=== PATIENT | female | born 1970 | race Caucasian/White ===

== ENCOUNTER → 2017-07-23 17:42 | Outpatient (CLI) | payer OTHER, SELFPAY ==
--- NOTE | 2017-07-23 17:51 | DI.MRI.S_ITS ---
PROCEDURE: MR CERVICAL SPINE WO CON INDICATIONS: CERVICAL SPINE PAIN TECHNIQUE: Noncontrast sagittal T1 spin echo and T2 fast spin echo, sagittal STIR, foraminal oblique sagittal T2 fast spin echo, and axial gradient echo or T2 fast spin echo through the cervical spine. COMPARISON: None. FINDINGS: Image quality: Excellent. Alignment and Curvature: There is normal bony alignment. Bone Marrow: Marrow demonstrates normal overall signal. Spinal Cord: Visualized spinal cord has normal size and signal. No cerebellar tonsillar herniation. Paraspinous Soft Tissues: No paravertebral masses. Note is made of a 7 mm rounded inferior third left thyroid nodule structure, likely a cyst by imaging characteristics. Prevertebral soft tissues are normal in thickness. C2-C3: Normal appearance. C3-C4: Normal appearance except for slight disc dehydration. C4-C5: Mild degenerative disc height reduction, slight posterior transverse disc bulge which effaces CSF from the anterior thecal sac but does not significantly compress the adjacent cervical cord. C5-C6: Mild degenerative disc disease, posterior broad-based transverse disc bulge which effaces CSF from the anterior thecal sac, and does not distort the adjacent anterior cord. Facet osteoarthritis is slightly greater on the left than the right with mild left foraminal stenosis but no definite nerve root impingement. C6-C7: Moderate degenerative disc disease, posterior broad-based transverse disc bulge which is greater on the left than the right and combines with asymmetric left greater than right facet osteoarthritis that results in a moderate degree of left foraminal stenosis and minimal if any right foraminal stenosis. There is mild anterior distortion of the C7 level of the cervical cord, on the left. No disc herniation is found. C7-T1: Normal appearance. IMPRESSION: The degenerative disc disease and facet osteoarthritis in this patient is relatively mild, with only a small degree of anterior spinal stenosis best seen left greater than right at C6-C7. Foraminal stenosis at the left C6-7 level likely results in asymmetric impingement on the course of the left C7 nerve root. No disc herniation found. Dictated by: Geovanny Garcia M.D. on 07/24/2017 at 9:50 Approved by: Geovanny Garcia M.D. on 07/24/2017 at 10:08
== END ==
PROVIDERS: Visit Provider Physical Medicine & Rehabilitation Pain Medicine
DX: M54.2 Cervicalgia (principal); M50.30 Other cervical disc degeneration, unspecified cervical region; M47.9 Spondylosis, unspecified; M48.02 Spinal stenosis, cervical region
CPT/HCPCS: 72141

== ENCOUNTER → 2019-10-19 12:18 | Outpatient (CLI) | payer OTHER, SELFPAY ==
--- NOTE | 2019-10-19 12:36 | DI.MG.S_ITS ---
Patient Name: KIMBERLY MAYEN date: 1970 Sex: F Attending Physician: Chris Indications: Date: 10/19/2019 12:26 At the request of: NEFTALI MILES Procedure: MM screening mammo BI BILATERAL DIGITAL SCREENING MAMMOGRAM 3D/2D WITH CAD: 10/19/2019 CLINICAL: Routine screening. Baseline exam. No prior exams were available for comparison. The tissue of both breasts is heterogeneously dense. This may lower the sensitivity of mammography. Current study was also evaluated with a Computer Aided Detection (CAD) system. No significant masses, calcifications, or other findings are seen in either breast. IMPRESSION: NEGATIVE There is no mammographic evidence of malignancy. A 1 year screening mammogram is recommended. This exam was interpreted at Station ID: [id number]. NOTE: For mammograms, a report in lay terms will be sent to the patient. Approximately 15% of breast malignancies will not be visualized mammographically. In the management of a palpable breast mass, a negative mammogram must not discourage biopsy of a clinically suspicious lesion. Electronically Signed By: Surekha lan/santana:10/19/2019 13:08:00 letter sent: Normal Exam ACR BI-RADS Category 1: Negative 3341F
== END ==
PROVIDERS: Referring Provider General Practice; Visit Provider General Practice
DX: Z12.31 Encounter for screening mammogram for malignant neoplasm of breast (principal)
CPT/HCPCS: 77063; 77067

== ENCOUNTER → 2020-08-06 14:12 | Outpatient (CLI) | payer OTHER, SELFPAY ==
[2020-08-06 16:37] LABS: COVID19 -Nasal RAPID Negative (Negative)
== END ==
PROVIDERS: Visit Provider Physician Assistant
DX: Z01.812 Encounter for preprocedural laboratory examination (principal); Z20.822 Contact with and (suspected) exposure to COVID-19
CPT/HCPCS: 87635

== ENCOUNTER → 2020-08-06 14:59 | Outpatient (CLI) | payer OTHER, SELFPAY | PROVIDERS: Referring Provider Obstetrics & Gynecology; Visit Provider Obstetrics & Gynecology | DX: Z20.822 Contact with and (suspected) exposure to COVID-19 (principal); Z01.812 Encounter for preprocedural laboratory examination; M85.88 Other specified disorders of bone density and structure, other site; E28.319 Asymptomatic premature menopause; E07.9 Disorder of thyroid, unspecified; Z90.722 Acquired absence of ovaries, bilateral; Z87.891 Personal history of nicotine dependence | CPT/HCPCS: 77080; 87635 ==

== ENCOUNTER 2020-08-08 07:34 | Day surgery (SDC) | payer OTHER, SELFPAY ==
[2020-08-08] VITALS (8 sets, daily range): BP systolic 106–120; BP diastolic 79–85; PULSE 73–94; RESP 12–18; TEMP 36–36.6; O2SAT 93–99; BMI 27.9
--- NOTE | 2020-08-08 08:38 | PM.HP.1 ---
History of Present Illness History of Present Illness Date Patient Seen: 08/08/20 Chief complaint: SDC Narrative: 1st screening for colon cancer Patient History Family & Social History Social History: household members spouse Tobacco & Substance use: Smoking Status Former smoker alcohol intake never Substance Use Type does not use Meds Home Medications and Allergies Home Medications Medication Instructions Recorded Confirmed Type amitriptyline 50 mg PO DAILY 08/08/20 08/08/20 History divalproex 500 mg PO DAILY 08/08/20 08/08/20 History levothyroxine [Synthroid] mcg PO DAILY 08/08/20 History methylprednisolone See Rx Instructions .ROUTE .COMPLEX 08/08/20 08/08/20 History omeprazole 20 mg PO DAILY 08/08/20 08/08/20 History propranolol 80 mg PO DAILY 08/08/20 08/08/20 History sumatriptan succinate See Rx Instructions .ROUTE .COMPLEX 08/08/20 08/08/20 History Allergies Allergy/AdvReac Type Severity Reaction Status Date / Time No Known Drug Allergies Allergy Verified 08/08/20 07:42 Exam Vital Signs (past 8 hours): - 08/08/20 07:46 Temperature 96.8 F L Pulse Rate 85 Respiratory Rate 16 Blood Pressure 113/81 Pulse Oximetry 99 Oxygen Delivery Method Room Air Oxygen Flow Rate 0 Narrative Exam Narrative: Oropharynx free of lesions Chest clear to auscultation percussion Cardiac exam reveals no S3 or murmur Assessment & Plan Assessment & Plan narrative: First screening for colon cancer. Risks, benefits, alternatives have been explained.
--- NOTE | 2020-08-08 08:38 | PM.OP.ENDO ---
Operative Date/Time/Diagnoses Date of procedure: 08/08/20 Pre-op diagnosis: See indication and findings Procedure & Clinicians Study performed: Colonoscopy Same procedure as scheduled: Yes Indications: 1st screening for colon cancer Surgeon: Mark Medina Procedure Notes Procedure in detail: After informed consent was obtained the patient was placed in left lateral decubitus position. The video colonoscope was introduced the rectum and slowly advanced to the cecum. Preparation was good. On slow withdrawal mucosa was carefully examined. The scope was removed. The patient tolerated procedure well. Blood loss none Complications none Sedation Total sedation time 15 minutes Versed 6 mg fentanyl 100 mg IV titration Findings 1. Normal colonoscopy to cecum Corine will not need follow-up colonoscopy for 10 years.
[2020-08-08] MEDS: SODIUM CHLORIDE 0.9% 1,000 ML 84 ML IV (08:51)
[2020-08-08] MEDS: fentaNYL 250 MCG/5 ML INJ IV (09:06)
[2020-08-08] MEDS: MIDAZOLAM 5 MG/5 ML VIAL IV (09:08)
== END 2020-08-08 10:08 | disposition home or self-care (01) ==
PROVIDERS: Referring Provider Internal Medicine Gastroenterology; Visit Provider Internal Medicine Gastroenterology
PROC: 0DJD8ZZ Inspection of Lower Intestinal Tract, Via Natural or Artificial Opening Endoscopic (ICD-10-PCS; CPT 45378; principal; 2020-08-08 09:00)
DX: Z12.11 Encounter for screening for malignant neoplasm of colon (principal)
CPT/HCPCS: 45378; J2250; J3010

== ENCOUNTER → 2020-08-14 14:55 | Outpatient (CLI) | payer OTHER, SELFPAY ==
--- NOTE | 2020-08-14 | DI.MG.S_ITS ---
BILATERAL DIGITAL SCREENING MAMMOGRAM 3D/2D WITH CAD: 08/14/2020 CLINICAL: Routine screening. Comparison is made to exam dated: 10/19/2019 [facility]. The tissue of both breasts is heterogeneously dense. This may lower the sensitivity of mammography. Current study was also evaluated with a Computer Aided Detection (CAD) system. No significant masses, calcifications, or other findings are seen in either breast. There has been no significant interval change. IMPRESSION: NEGATIVE There is no mammographic evidence of malignancy. A 1 year screening mammogram is recommended. Future imaging is recommended as follows: 10/19/2020 screening mammogram. This exam was interpreted at Station ID: [id number]. NOTE: For mammograms, a report in lay terms will be sent to the patient. Approximately 15% of breast malignancies will not be visualized mammographically. In the management of a palpable breast mass, a negative mammogram must not discourage biopsy of a clinically suspicious lesion. Electronically Signed By: Brad Juarez M.D., jr/santana:08/14/2020 17:12:24 letter sent: Normal Exam ACR BI-RADS Category 1: Negative 3341F
== END ==
PROVIDERS: Referring Provider Obstetrics & Gynecology; Visit Provider Obstetrics & Gynecology
DX: Z12.31 Encounter for screening mammogram for malignant neoplasm of breast (principal)
CPT/HCPCS: 77063; 77067

== ENCOUNTER 2020-09-21 21:38 | Emergency (ER) | payer OTHER, SELFPAY ==
[2020-09-21 21:45] VITALS: BP 118/77; PULSE 80; RESP 17; TEMP 36; O2SAT 98
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
--- NOTE | 2020-09-22 02:45 | DI.CT.S_ITS ---
PROCEDURE: CT HEAD/BRAIN WO CON INDICATIONS: 4 hour repeat to re-eval frontal lesion TECHNIQUE: Noncontrast 4.5 mm thick angled axial sections acquired from the foramen magnum to the vertex, with coronal and sagittal reformats. For radiation dose reduction, the following was used: automated exposure control, adjustment of mA and/or kV according to patient size. COMPARISON: [facility], CT, CT HEAD/BRAIN WO CON, 09/21/2020, 22:43. FINDINGS: Image quality: Excellent. CSF spaces: Basal cisterns are patent. No extra-axial fluid collections. Ventricles are normal in size and shape. Brain: The previously seen focus of hyperdensity within the right frontal lobe is no longer seen. This area of brain appears normal. No midline shift. No intracranial masses or hemorrhage. Gallagher-white matter interface is normal. A small lacunar infarct can be seen within the left external capsule. Skull and face: Calvarium and visualized facial bones are intact, without suspicious lesions. Sinuses: Visualized sinuses and mastoids are clear. IMPRESSION: Resolved hyperdense focus within the right frontal lobe, which is most likely related to artifact on the prior scan. Note: No significant discrepancy from the preliminary report. Dictated by: Reid Hoffmann M.D. on 09/22/2020 at 7:20 Approved by: Reid Hoffmann M.D. on 09/22/2020 at 7:21
[2020-09-22 03:52] VITALS: BP 107/56; PULSE 70; RESP 17; O2SAT 99
== END 2020-09-22 03:56 | disposition home or self-care (01) ==
PROVIDERS: Emergency Provider Emergency Medicine
DX: M54.2 Cervicalgia (principal); M54.5 Low back pain; V89.2XXA Person injured in unspecified motor-vehicle accident, traffic, initial encounter
CPT/HCPCS: 70450; 72125; 99284

== ENCOUNTER → 2021-01-16 12:38 | Outpatient (CLI) | payer OTHER, SELFPAY ==
--- NOTE | 2021-01-16 | DI.MRI.S_ITS ---
PROCEDURE: MR CERVICAL SPINE WO CON INDICATIONS: Radiculopathy, cervical region TECHNIQUE: Noncontrast sagittal T1 spin echo and T2 fast spin echo, sagittal STIR, foraminal oblique sagittal T2 fast spin echo, and axial gradient echo or T2 fast spin echo through the cervical spine. COMPARISON: [facility], MR, MR CERVICAL SPINE WO CON, 07/23/2017, 17:52. [facility], CT, CT CERVICAL SPINE WO CON, 09/21/2020, 22:43. [facility], CR, XR CERVICAL SPINE 6+ VIEWS, 01/01/2021, 10:39. FINDINGS: Image quality: This examination is limited by involuntary motion artifact. Alignment and Curvature: Reversal of the normal cervical lordosis is seen, with the apex at the C5-C6 level. No focal AP alignment abnormality is seen. Bone Marrow: Marrow demonstrates normal overall signal. Spinal Cord: Visualized spinal cord has normal size and signal. No cerebellar tonsillar herniation. Paraspinous Soft Tissues: No paravertebral masses. Prevertebral soft tissues are normal in thickness. C2-C3: Normal appearance. C3-C4: The disc height is well-preserved. Loss of disc signal is seen at this level. A mild degree of generalized disc osteophyte complex is seen. Moderate facet joint hypertrophy is seen. There is moderate right-sided and mild left-sided neural foraminal narrowing seen. Mild central canal narrowing is seen. When comparison is made with the prior images, these findings are similar. C4-C5: The disc height is well-preserved. Loss of disc signal is seen at this level. Mild to moderate disc osteophyte complex is seen, with a mild central disc osteophyte protrusion. Mild facet joint hypertrophy is seen. No neural foraminal narrowing can be seen. Mild to moderate central canal narrowing is seen, with a mild degree of mass effect upon the ventral spinal cord. No significant change from the prior. C5-C6: Mild loss of disc height is seen. Loss of disc signal is seen. Moderate disc osteophyte complex is seen, which is slightly eccentric to the right. Mild facet joint hypertrophy is seen. No significant neural foraminal narrowing can be seen. Moderate central canal narrowing is seen, with associated mass effect upon the ventral spinal cord. These degenerative changes are mildly progressed compared to 2018. C6-C7: Moderate loss of disc height is seen. Loss of disc signal is seen. Moderate disc osteophyte complex is seen, with a central/left disc osteophyte protrusion. Mild facet joint hypertrophy is seen. There is mild right-sided and moderate left-sided neural foraminal narrowing seen. Moderate central canal narrowing is seen. Slight progression compared to 2018. C7-T1: Normal appearance. IMPRESSION: Multiple levels of cervical spine degenerative change are seen, which are worst inferiorly. Compared to 2018, there is mild overall progression of the degenerative change. Reversal of the normal cervical lordosis is seen. This is commonly observed in patients with muscular spasm. Dictated by: Reid Hoffmann M.D. on 01/16/2021 at 13:31 Approved by: Reid Hoffmann M.D. on 01/16/2021 at 13:36
== END ==
PROVIDERS: Referring Provider Physical Medicine & Rehabilitation Pain Medicine; Visit Provider Physical Medicine & Rehabilitation Pain Medicine
DX: M47.22 Other spondylosis with radiculopathy, cervical region (principal)
CPT/HCPCS: 72141